=== PATIENT | female | born 1950 | race Caucasian/White ===

== ENCOUNTER → 2020-08-01 | Outpatient (CLI) | payer MEDICARE, OTHER ==
[~2020-08-01] MED LIST: ADVAIR 250-501 EACH INH; ALBUTEROL2.5 MG/3 M INH; ALL DAY ALLERGY10 M2 PO; ATORVASTATIN CA10 MG PO; BUPROPION HCL100 M1 PO; CLARITIN 10MG T10 MG PO; DILTIAZEM ER240 M1 PO; FLOVENT DISKUS50 MCG INH; FUROSEMIDE20 MG PO; HABITROL 21 MG P1 EA TD; HEPARIN-NS25000 UNIT IV; KLOR-CON M2020 MEQ PO; LANTUS INS100 UTS/M1 SQ; LASIX20 MG PO; LOPRESSOR 25 MG25 MG PO; MEDROL TAB 4 MG4 MG PO; MELATONIN5 M2 PO; NICODERM CQ1 EAC1 TD; NITROSTAT0.4 MG SL; NOVOLOG 10100 UNITS1 INJ; PROAIR HFA8.5 GM INH; PROTONIX 40 MG40 M1 PO; PROTONIX40 MG PO; TENORMIN 50 MG50 MG PO; TRAMADOL-ACETA1 EACH PO; XARELTO10 MG PO; XARELTO20 MG PO; ZESTRIL10 MG PO; ZOLOFT50 MG PO; [UNRECOGNIZED DRUG - OTHER] INH
== END ==
LOC: KOH-I 13:46
DX: M25.572 Pain in left ankle and joints of left foot (principal); M79.89 Other specified soft tissue disorders
CPT/HCPCS: 73610; 73630